=== PATIENT | male | born 1955 | race Caucasian/White ===

== ENCOUNTER → 2021-06-15 | Day surgery (SDC) | payer OTHER ==
[~2021-06-15] VITALS: Ht 175.2 cm; Wt 111.6 kg
[~2021-06-15] MED LIST: AMARYL1 M1 PO; CARVEDILOL12.5 MG PO; METFORMIN HYD1000 MG PO
[2021-06-15 10:05] VITALS: BP 135/96
[2021-06-15 11:52] VITALS: BP 125/79
[2021-06-15 12:05] VITALS: BP 133/83
[2021-06-15 12:22] VITALS: BP 131/87
== END | disposition home or self-care (01) ==
LOC: SDC 06-04 08:00
PROVIDERS: ATTEND Surgery
DX: Z12.11 Encounter for screening for malignant neoplasm of colon (principal); K57.30 Diverticulosis of large intestine without perforation or abscess without bleeding; I10 Essential (primary) hypertension; I25.10 Atherosclerotic heart disease of native coronary artery without angina pectoris; E11.9 Type 2 diabetes mellitus without complications; Z79.899 Other long term (current) drug therapy